=== PATIENT | female | born 1960 | race Caucasian/White ===

== ENCOUNTER 2016-12-28 10:10 | Emergency (ER) | payer MEDICAID ==
[~2016-12-28] VITALS: Ht 170.2 cm; Wt 72.6 kg
[~2016-12-28 10:10] MED LIST: BACL0.13; BENADRYL; CERTKIT; DEPAKOTE; KEPPRA; METHPOW77; NORTRIPTYLINE
[2016-12-28 10:17] VITALS: BP 132/86
== END 2016-12-28 11:23 | disposition left against medical advice (07) ==
LOC: ER 10:10
DX: Z76.1 Encounter for health supervision and care of foundling (principal); Z53.21 Procedure and treatment not carried out due to patient leaving prior to being seen by health care provider

== ENCOUNTER 2017-01-21 12:26 | Emergency (ER) | payer MEDICAID ==
[~2017-01-21] VITALS: Ht 170.2 cm; Wt 72.6 kg
[2017-01-21 14:34] VITALS: BP 120/75
== END 2017-01-21 15:07 | disposition home or self-care (01) ==
LOC: ER 12:26
DX: M06.9 Rheumatoid arthritis, unspecified (principal); Z88.6 Allergy status to analgesic agent; Z79.899 Other long term (current) drug therapy; F17.210 Nicotine dependence, cigarettes, uncomplicated